=== PATIENT | male | born 1950 | race Caucasian/White ===

== ENCOUNTER 2021-05-05 16:37 | Emergency (ER) | payer MEDICARE, OTHER ==
--- NOTE | 2021-05-05 16:41 | EDM.PDOC ---
ED HPI GENERAL MEDICAL PROBLEM - General Chief Complaint: Lower Extremity Injury/Pain Stated Complaint: FELL OFF LADDER AND INJURED HIP Time Seen by Provider: 05/05/21 16:37 Source of Information: Reports: Patient, EMS, EMS Notes Reviewed, RN Notes Reviewed History Limitations: Reports: No Limitations - History of Present Illness INITIAL COMMENTS - FREE TEXT/NARRATIVE: Patient presents to the emergency department via EMS for evaluation of left hip pain. He states he was approximately 5 feet off the ground on a ladder when he stepped backwards and fell from the ladder. He landed directly onto his left hip. He is complaining of pain there but denies other injuries or concerns. He states he felt a little bit dizzy before falling; however, states he has been worked up for dizziness in the recent past and providers have been unable to identify a cause. He is taking medication for that right now. He did not hit his head, had no loss of consciousness, and is able to accurately recount the details of the injury. He denies other concerns or complaints. Onset: Today, Sudden Left Hip Pain Score (Numeric/FACES): 5 - Related Data Allergies Allergy/AdvReac Type Severity Reaction Status Date / Time No Known Allergies Allergy Verified 05/05/21 16:58 Review of Systems - Review of Systems Review Of Systems: Comprehensive ROS is negative, except as noted in HPI. ED EXAM, GENERAL - Physical Exam Exam: See Below Exam Limited By: No Limitations General Appearance: Alert, No Apparent Distress, Mild Distress Eye Exam: Bilateral Eye: Normal Inspection, PERRL Ears: Normal External Exam Nose: Normal Inspection Throat/Mouth: Normal Inspection Head: Atraumatic, Normocephalic Respiratory/Chest: No Respiratory Distress, Lungs Clear, Normal Breath Sounds, No Accessory Muscle Use Cardiovascular: Normal Peripheral Pulses, Regular Rate, Rhythm Extremities: Normal Inspection, Other (Left hip quite swollen, no deformity or discoloration noted.) Neurological: Alert, Oriented Psychiatric: Normal Affect Skin Exam: Warm, Dry, Intact Course - Vital Signs Last Recorded V/S: Last Vital Signs Temp 35.6 C L 05/05/21 17:30 Pulse 57 L 05/05/21 17:53 Resp 16 05/05/21 17:53 BP 94/53 L 05/05/21 17:53 Pulse Ox 97 05/05/21 17:53 - Orders/Labs/Meds Orders: Active Orders 24 hr Category Date Time Status Pelvis wo Cont [CT] Stat Exams 05/05/21 16:48 Taken BASIC METABOLIC PANEL,BMP [CHEM] Stat Lab 05/05/21 17:39 Ordered CBC WITH AUTO DIFF [HEME] Stat Lab 05/05/21 17:34 Ordered CORONAVIRUS COVID-19 ESMER [MOLEC] Stat Lab 05/05/21 17:50 Received Sodium Chloride 0.9% [Normal Saline] 1,000 ml Med 05/05/21 17:45 Ordered IV ASDIRECTED Medication Orders Sodium Chloride (Normal Saline) 1,000 mls @ 999 mls/hr IV ASDIRECTED MARC Meds: Medications Generic Name Dose Route Start Last Admin Trade Name Freq PRN Reason Stop Dose Admin Sodium Chloride 1,000 mls @ 999 mls/hr 05/05/21 17:45 Normal Saline IV ASDIRECTED MARC Discontinued Medications Generic Name Dose Route Start Last Admin Trade Name Freq PRN Reason Stop Dose Admin Lorazepam 2 mg 05/05/21 16:49 05/05/21 16:54 Lorazepam 2 Mg/Ml Sdv IVPUSH 05/05/21 16:50 2 mg ONETIME ONE Administration Lorazepam Confirm 05/05/21 17:00 05/05/21 16:58 Lorazepam 2 Mg/Ml Sdv Administered 05/05/21 17:01 Not Given Dose 2 mg .ROUTE .STK-MED ONE Morphine Sulfate 4 mg 05/05/21 16:43 05/05/21 16:56 Morphine 10 Mg/Ml Sdv IV 05/05/21 16:44 4 mg ONETIME ONE Administration Morphine Sulfate Confirm 05/05/21 17:00 05/05/21 16:59 Morphine 4 Mg/Ml Vial Administered 05/05/21 17:01 Not Given Dose 4 mg .ROUTE .STK-MED ONE - Re-Assessments/Exams Free Text/Narrative Re-Assessment/Exam: 05/05/21 17:58 This patient presents to the emergency department following a fall from a ladder. History clinical findings are most consistent with a proximal femur fracture. He has excellent CMS and has been comfortable with morphine and Ativ an. He has no other injuries. I contacted with Dr. Lu from their emergency department who did agree to accept him in admission to their facility. He will be transported to the emergency department at [facility] and will fly with guardian and air. The patient's trauma exam include is negative for other serious sequelae including spine, head, chest, abdomen, other extremity, and pelvic injuries. The patient was stable at the time of transfer. Departure - Departure Time of Disposition: 18:45 Disposition: DC/Tfer to [facility] Condition: Good Clinical Impression: Femur fracture, left - Discharge Information *PRESCRIPTION DRUG MONITORING PROGRAM REVIEWED*: No *COPY OF PRESCRIPTION DRUG MONITORING REPORT IN PATIENT CLIF: No Forms: ED Department Discharge, Interfacility Transfer ANDREA Sepsis Event Note (ED) - Focused Exam Vital Signs: Vital Signs Temp Pulse Resp BP Pulse Ox 05/05/21 17:53 57 L 16 94/53 L 97 05/05/21 17:44 58 L 20 100/43 L 98 05/05/21 17:37 62 16 88/66 L 97 05/05/21 17:30 35.6 C L 64 20 118/65 94 L 05/05/21 17:08 64 18 126/73 90 L 05/05/21 16:37 35.6 C L 64 20 118/65 94 L - My Orders Last 24 Hours: My Active Orders 05/05/21 16:48 Pelvis wo Cont [CT] Stat 05/05/21 17:34 CBC WITH AUTO DIFF [HEME] Stat 05/05/21 17:39 BASIC METABOLIC PANEL,BMP [CHEM] Stat 05/05/21 17:45 Sodium Chloride 0.9% [Normal Saline] 1,000 ml IV ASDIRECTED 05/05/21 17:50 CORONAVIRUS COVID-19 ESMER [MOLEC] Stat - Assessment/Plan Last 24 Hours: My Active Orders 05/05/21 16:48 Pelvis wo Cont [CT] Stat 05/05/21 17:34 CBC WITH AUTO DIFF [HEME] Stat 05/05/21 17:39 BASIC METABOLIC PANEL,BMP [CHEM] Stat 05/05/21 17:45 Sodium Chloride 0.9% [Normal Saline] 1,000 ml IV ASDIRECTED 05/05/21 17:50 CORONAVIRUS COVID-19 ESMER [MOLEC] Stat
[2021-05-05] MEDS ORDERED: Morphine 10 MG/ML SDV IV ONE (16:43)
[2021-05-05] MEDS ORDERED: LORazepam 2 MG/ML SDV IVPUSH ONE (16:49)
[2021-05-05] MEDS ORDERED: Morphine 4 MG/ML VIAL ONE ×2 (17:00→18:37)
[2021-05-05] MEDS ORDERED: LORazepam 2 MG/ML SDV ONE (17:00)
[2021-05-05] MEDS ORDERED: Sodium Chloride 0.9% 1,000 ML IV SCH (17:45)
[2021-05-05] MEDS ORDERED: Morphine 4 MG/ML VIAL IVPUSH ONE (18:27)
--- NOTE | 2021-05-06 11:47 | CT ---
CLINICAL DATA: Trauma. PELVIC CT, 2020: Multislice axial acquisition through the pelvis and proximal femurs was performed. There is an impacted, comminuted, intertrochanteric fracture on the left with coxa vara deformity. No other acute abnormalities. IMPRESSION: Comminuted intertrochanteric left hip fracture. Job: [id number] [facility]
== END 2021-05-05 19:50 ==
LOC: LB.ED 16:37
DX: S72.142A Displaced intertrochanteric fracture of left femur, initial encounter for closed fracture (principal); Z20.822 Contact with and (suspected) exposure to COVID-19; W11.XXXA Fall on and from ladder, initial encounter
CPT/HCPCS: 36415; 72192; 80048; 85025; 96374; 96375; 96376; 99285; A0425; A0429; J2060; J2270; J7030; U0002

== ENCOUNTER 2022-12-22 23:25 | Emergency (ER) | payer MEDICARE, BC ==
[2022-12-23] MEDS ORDERED: Gabapentin 300 MG Cap PO ONE (00:08)
[2022-12-23] MEDS ORDERED: Ketorolac 30 MG/ML SDV IVPUSH ONE (00:08)
[2022-12-23] MEDS ORDERED: fentaNYL 100 MCG/2 ML SDV ONE (00:44)
[2022-12-23] MEDS ORDERED: fentaNYL 100 MCG/2 ML SDV IVPUSH STA (00:45)
[2022-12-23] MEDS ORDERED: HYDROmorphone 2 MG/ML Syringe ONE (01:42)
[2022-12-23] MEDS ORDERED: HYDROmorphone 2 MG/ML Syringe IVPUSH ONE (01:45)
[2022-12-23] MEDS ORDERED: fentaNYL 50 MCG/HR Transdermal Patch ONE (02:06)
[2022-12-23] MEDS ORDERED: Ondansetron 4 MG Tab.DIS PO PRN (02:10)
[2022-12-23] MEDS ORDERED: fentaNYL 50 MCG/HR Transdermal Patch TRDERM SCH (02:15)
[2022-12-23] MEDS: Cyclobenzaprine 10 MG Tab PO SCH ×2 (03:16→10:49)
[2022-12-23] MEDS: Acetaminophen/HYDROcodone 325-5 MG Tab PO PRN ×2 (03:16→10:47)
[2022-12-23] MEDS ORDERED: Non-Formulary Medication 1 Each (Magnesium [Magnesium] 250 MG Tablet) PO SCH (08:00)
[2022-12-23] MEDS ORDERED: Magnesium Oxide 400 MG Tab ONE (10:42)
[2022-12-23] MEDS: Metoprolol Succinate 25 MG Tab.ER PO SCH (10:48)
[2022-12-23] MEDS: Apixaban 5 MG Tab PO SCH ×2 (10:48→20:21)
[2022-12-23] MEDS: Pravastatin 40 MG Tab PO SCH (10:49)
[2022-12-23] MEDS: DULoxetine 60 MG Cap PO SCH (10:49)
[2022-12-23] MEDS: Esomeprazole 40 MG Cap PO SCH ×2 (10:49→20:20)
[2022-12-23] MEDS: BALSALAZIDE 750 MG PO SCH ×2 (11:38→23:40)
[2022-12-23] MEDS: OXCARBAZEPINE 300 MG PO SCH ×2 (11:38→20:20)
[2022-12-23] MEDS: Non-Formulary Medication 1 Each (Pregabalin [Lyrica] 150 MG Cap) PO SCH ×2 (11:39→23:41)
[2022-12-23] MEDS: fentaNYL 100 MCG/2 ML SDV IVPUSH PRN ×2 (14:30→14:56)
[2022-12-23] MEDS: Gabapentin 300 MG Cap PO SCH ×2 (14:44→20:20)
[2022-12-23] MEDS ORDERED: fentaNYL 75 MCG/HR Transdermal Patch TRDERM SCH (15:00)
[2022-12-23] MEDS ORDERED: fentaNYL 75 MCG/HR Transdermal Patch ONE (15:18)
[2022-12-23] MEDS: methylPREDNISolone Sodium Succinate 40 MG/1 ML SDV IVPUSH SCH ×2 (15:26→23:39)
[2022-12-23] MEDS ORDERED: Morphine 4 MG/ML VIAL IVPUSH PRN (16:39)
[2022-12-23] MEDS: Pregabalin 50 MG Cap ONE ×2 (20:19→20:21)
[2022-12-24] MEDS: methylPREDNISolone Sodium Succinate 40 MG/1 ML SDV IVPUSH SCH (07:47)
[2022-12-24] MEDS: DULoxetine 60 MG Cap PO SCH (07:50)
[2022-12-24] MEDS: Gabapentin 300 MG Cap PO SCH ×2 (07:50→13:24)
[2022-12-24] MEDS: Cyclobenzaprine 10 MG Tab PO SCH (07:50)
[2022-12-24] MEDS: Esomeprazole 40 MG Cap PO SCH (07:50)
[2022-12-24] MEDS: Apixaban 5 MG Tab PO SCH (07:50)
[2022-12-24] MEDS: Metoprolol Succinate 25 MG Tab.ER PO SCH (07:51)
[2022-12-24] MEDS: BALSALAZIDE 750 MG PO SCH (07:58)
[2022-12-24] MEDS: OXCARBAZEPINE 300 MG PO SCH (07:59)
[2022-12-24] MEDS ORDERED: Magnesium Oxide 400 MG Tab PO SCH (08:00)
[2022-12-24] MEDS ORDERED: Pregabalin 75 MG Cap ONE (08:07)
[2022-12-24] MEDS: Pravastatin 40 MG Tab PO SCH (08:10)
[2022-12-24] MEDS: Acetaminophen/HYDROcodone 325-5 MG Tab PO PRN (08:15)
[2022-12-24] MEDS ORDERED: Pregabalin 75 MG Cap PO SCH (20:00)
== END 2022-12-24 16:20 | disposition home or self-care (01) ==
LOC: LB.ED 23:25 → LB.MS 12-23 02:07 → UNDOADMOB 12-23 02:10 → LB.MS 12-23 02:10
PROVIDERS: ADMIT Surgery; ATTEND Surgery
DX: M54.16 Radiculopathy, lumbar region (principal); R22.9 Localized swelling, mass and lump, unspecified; I25.2 Old myocardial infarction; Z86.16 Personal history of COVID-19; Z86.73 Personal history of transient ischemic attack (TIA), and cerebral infarction without residual deficits; Z95.1 Presence of aortocoronary bypass graft
CPT/HCPCS: 96374; 96375; 96376; 97165-GO; 99222; 99239; 99284-25; A0425; A0429; A9270-GY; G0378; J1170; J1885; J2270; J2920; J3010

== ENCOUNTER 2023-04-06 12:11 | Observation (INO) | payer MEDICARE, BC ==
[2023-04-06] MEDS ORDERED: Sodium Chloride 0.9% 10 ML Syringe FLUSH PRN (13:58)
[2023-04-06 14:26] LABS: HEMATOCRIT 28.9 % (40.0-54.0); HEMOGLOBIN 9.7 g/dL (13.0-18.0); MEAN CORPUSCULAR HEMOGLOBIN 28.6 pg (27.0-32.0); MEAN CORPUSCULAR HGB CONC 33.6 g/dL (31.0-35.0); MEAN CORPUSCULAR VOLUME 85 fL (76-96); MEAN PLATELET VOLUME 9.3 fL (6.0-10.0); PLATELET COUNT,PLT 111 K/uL (150-400); RED BLOOD CELL COUNT 3.39 M/uL (4.50-6.50); RED CELL DISTRIBUTION WIDTH 13.2 % (11.0-16.0)
[2023-04-06 14:32] LABS: WHITE BLOOD CELL COUNT,WBC 0.4 K/uL (4.0-11.0)
[2023-04-06 14:52] LABS: A/G RATIO 0.9 (0.8-2.0); ALANINE AMINOTRANSFERASE,ALT 17 U/L (12-78); ALKALINE PHOSPHATASE 58 U/L (46-116); ANION GAP 13.4 mmol/L (5.0-15.0); ASPARTATE AMNIOTRANSFERASE,AST 21 U/L (15-37); BILIRUBIN TOTAL 0.3 mg/dL (0.0-1.0); BLOOD UREA NITROGEN,BUN 9 mg/dL (8-26); CALCIUM 8.3 mg/dL (8.5-10.1); CARBON DIOXIDE,CO2 25.6 mmol/L (21.0-32.0); CHLORIDE,CL 100 mmol/L (98-107); CREATININE 0.82 mg/dL (0.70-1.30); ESTIMATED GFR 94 mL/min (>60); GLUCOSE RANDOM 110 mg/dL (74-100); MAGNESIUM 1.4 mg/dL (1.8-2.4); PHOSPHORUS 3.6 mg/dL (2.5-4.9); PROTEIN TOTAL,TP 6.3 g/dL (6.4-8.2); SODIUM,NA 135 mmol/L (136-145); TROPONIN I HIGH SENSITIVITY 16.8 pg/ml (<=60.4)
[2023-04-06 15:03] LABS: PLATELET COUNT ESTIMATE DECREASED
[2023-04-06 15:04] LABS: GIANT PLATELETS OCCASIONAL
[2023-04-06] MEDS ORDERED: ceFAZolin 2 GM in Sodium Chloride 0.9% 50 ML IV ONE (15:05)
[2023-04-06 15:26] LABS: APPEARANCE,URINE CLEAR (CLEAR); BILIRUBIN,URINE NEGATIVE (NEGATIVE); COLOR,URINE YELLOW; GLUCOSE,URINE NEGATIVE (NEGATIVE); KETONES,URINE NEGATIVE (NEGATIVE); LEUKOCYTE ESTERASE,URINE NEGATIVE (NEGATIVE); NITRITE,URINE NEGATIVE (NEGATIVE); OCCULT BLOOD,URINE NEGATIVE (NEGATIVE); PH,URINE 8.5 (5.0-8.0); PROTEIN,URINE NEGATIVE (NEGATIVE); UROBILINOGEN,URINE 0.2 E.U./dL (0.2-1.0)
[2023-04-06] MEDS ORDERED: Piperacillin/Tazobactam 3.375 GM in Sodium Chloride 0.9% 50 ML IV SCH (16:00)
[2023-04-06] MEDS ORDERED: Piperacillin/Tazobactam 3.375 GM in Sodium Chloride 0.9% 100 ML IV SCH (16:30)
[2023-04-06] MEDS ORDERED: Ondansetron 4 MG/2 ML SDV IV PRN (17:08)
[2023-04-06] MEDS ORDERED: Acetaminophen 325 MG Tab PO PRN (17:08)
[2023-04-06] MEDS ORDERED: Lactated Ringers 1,000 ML IV SCH (17:15)
[2023-04-06] MEDS: Piperacillin/Tazobactam 3.375 GM in Sodium Chloride 0.9% 100 ML IV SCH (21:12)
[2023-04-06] MEDS: Morphine 30 MG Tab.ER PO SCH (21:21)
[2023-04-06] MEDS: Prochlorperazine 10 MG Tab PO PRN (21:21)
[2023-04-06] MEDS: oxyCODONE 5 MG Tab PO PRN (21:22)
[2023-04-06] MEDS: OXcarbazepine 150 MG Tab PO SCH (21:24)
[2023-04-07] MEDS: Piperacillin/Tazobactam 3.375 GM in Sodium Chloride 0.9% 100 ML IV SCH ×4 (01:39→21:02)
[2023-04-07] MEDS: oxyCODONE 5 MG Tab PO PRN ×3 (03:38→15:44)
[2023-04-07] MEDS: Morphine 30 MG Tab.ER PO SCH ×2 (07:43→20:44)
[2023-04-07] MEDS: Prochlorperazine 10 MG Tab PO PRN (07:46)
[2023-04-07 08:49] LABS: HEMATOCRIT 26.4 % (40.0-54.0); HEMOGLOBIN 8.9 g/dL (13.0-18.0); MEAN CORPUSCULAR HEMOGLOBIN 28.8 pg (27.0-32.0); MEAN CORPUSCULAR HGB CONC 33.7 g/dL (31.0-35.0); MEAN PLATELET VOLUME 9.7 fL (6.0-10.0); RED BLOOD CELL COUNT 3.09 M/uL (4.50-6.50); RED CELL DISTRIBUTION WIDTH 13.3 % (11.0-16.0)
[2023-04-07 08:52] LABS: WHITE BLOOD CELL COUNT,WBC 0.7 K/uL (4.0-11.0)
[2023-04-07 09:13] LABS: MAGNESIUM 1.5 mg/dL (1.8-2.4)
[2023-04-07] MEDS: OXcarbazepine 150 MG Tab PO SCH ×2 (14:27→20:43)
[2023-04-08] MEDS: Piperacillin/Tazobactam 3.375 GM in Sodium Chloride 0.9% 100 ML IV SCH ×3 (01:28→13:04)
[2023-04-08] MEDS: oxyCODONE 5 MG Tab PO PRN (05:20)
[2023-04-08] MEDS: Morphine 30 MG Tab.ER PO SCH (08:03)
[2023-04-08 08:48] LABS: HEMOGLOBIN 9.4 g/dL (13.0-18.0); MEAN CORPUSCULAR HEMOGLOBIN 28.8 pg (27.0-32.0); MEAN CORPUSCULAR HGB CONC 33.6 g/dL (31.0-35.0); MEAN PLATELET VOLUME 9.6 fL (6.0-10.0); RED BLOOD CELL COUNT 3.26 M/uL (4.50-6.50); RED CELL DISTRIBUTION WIDTH 13.3 % (11.0-16.0)
[2023-04-08 09:00] LABS: WHITE BLOOD CELL COUNT,WBC 0.9 K/uL (4.0-11.0)
[2023-04-08 09:03] LABS: ANION GAP 11.3 mmol/L (5.0-15.0); CALCIUM 8.7 mg/dL (8.5-10.1); CARBON DIOXIDE,CO2 26.7 mmol/L (21.0-32.0); CREATININE 0.67 mg/dL (0.70-1.30)
[2023-04-08] MEDS: OXcarbazepine 150 MG Tab PO SCH (11:24)
== END 2023-04-08 14:22 | disposition home or self-care (01) ==
LOC: LB.ED 12:11 → LB.MS 18:29
PROVIDERS: ADMIT Surgery; ATTEND Surgery
DX: D70.9 Neutropenia, unspecified (principal); J18.9 Pneumonia, unspecified organism; I25.2 Old myocardial infarction; F03.90 Unspecified dementia, unspecified severity, without behavioral disturbance, psychotic disturbance, mood disturbance, and anxiety; K50.90 Crohn's disease, unspecified, without complications; Z79.899 Other long term (current) drug therapy
CPT/HCPCS: 36415; 71045; 80048; 80053; 81003; 83605; 83735; 83880; 84100; 84484; 85025; 85027; 87040; 96365; 96366; 96367; 96376; 99221; 99238; 99285-25; A9270-GY; G0378; J0690; J2543; J3475; J3490; J7120; Q0164

== ENCOUNTER 2023-04-11 07:42 | Emergency (ER) | payer MEDICARE, BC ==
[2023-04-11] MEDS: Albuterol/Ipratropium 3.0-0.5 MG/3 ML Neb Soln NEB ONE (08:10)
[2023-04-11] MEDS: Albuterol 0.083% 2.5 MG/3 ML Neb Soln NEB ONE ×2 (08:34)
[2023-04-11] MEDS: Acetaminophen 325 MG Tab PO ONE (08:59)
[2023-04-11 09:11] LABS: BASOPHILS ABSOLUTE AUTO 0.01 K/uL (0.02-0.10); BASOPHILS PERCENT AUTO 0.7 % (0.0-0.5); HEMATOCRIT 28.6 % (40.0-54.0); HEMOGLOBIN 9.6 g/dL (13.0-18.0); LYMPHOCYTES ABSOLUTE AUTO 0.47 K/uL (1.50-4.00); MEAN CORPUSCULAR HEMOGLOBIN 28.7 pg (27.0-32.0); MEAN CORPUSCULAR HGB CONC 33.6 g/dL (31.0-35.0); MEAN CORPUSCULAR VOLUME 85 fL (76-96); MEAN PLATELET VOLUME 9.7 fL (6.0-10.0); MONOCYTES ABSOLUTE AUTO 0.41 K/uL (0.20-0.80); MONOCYTES PERCENT AUTO 27.9 % (3.0-10.0); NEUTROPHILS ABSOLUTE AUTO 0.58 K/uL (2.00-7.50); NEUTROPHILS PERCENT AUTO 39.4 % (45.0-70.0); PLATELET COUNT,PLT 178 K/uL (150-400); RED BLOOD CELL COUNT 3.35 M/uL (4.50-6.50); RED CELL DISTRIBUTION WIDTH 13.8 % (11.0-16.0); WHITE BLOOD CELL COUNT,WBC 1.5 K/uL (4.0-11.0)
[2023-04-11] MEDS ORDERED: HYDROmorphone 2 MG/ML Syringe IVPUSH PRN (09:21)
[2023-04-11 09:25] LABS: APPEARANCE,URINE CLEAR (CLEAR); BILIRUBIN,URINE NEGATIVE (NEGATIVE); COLOR,URINE YELLOW; GLUCOSE,URINE NEGATIVE (NEGATIVE); KETONES,URINE NEGATIVE (NEGATIVE); LEUKOCYTE ESTERASE,URINE NEGATIVE (NEGATIVE); NITRITE,URINE NEGATIVE (NEGATIVE); OCCULT BLOOD,URINE NEGATIVE (NEGATIVE); PROTEIN,URINE NEGATIVE (NEGATIVE); UROBILINOGEN,URINE 0.2 E.U./dL (0.2-1.0)
[2023-04-11 09:30] LABS: INR 1.1 (1.0-3.5); PTT,PARTIAL THROMBOPLSTIN TIME 25.4 SECONDS (24.4-33.2)
[2023-04-11 09:31] LABS: PROTHROMBIN TIME 11.6 sec (9.0-11.5)
[2023-04-11 09:53] LABS: A/G RATIO 0.8 (0.8-2.0); ALBUMIN 2.9 g/dL (3.4-5.0); ANION GAP 15.1 mmol/L (5.0-15.0); BILIRUBIN TOTAL 0.3 mg/dL (0.0-1.0); BUN/CREATININE RATIO 11.7 (6-25); CALCIUM 8.9 mg/dL (8.5-10.1); CARBON DIOXIDE,CO2 23.7 mmol/L (21.0-32.0); CREATININE 0.77 mg/dL (0.70-1.30); EST CRCL DRUG DOSING (CG) 99.44 mL/min; POTASSIUM,K 3.8 mmol/L (3.5-5.1); PROTEIN TOTAL,TP 6.5 g/dL (6.4-8.2); TROPONIN I HIGH SENSITIVITY 10.7 pg/ml (<=60.4)
[2023-04-11] MEDS: VANCOmycin 1.5 GM/300 ML 1.5 GM in Premix Bag 1 BAG IV ONE (10:22)
[2023-04-11] MEDS: Acetaminophen 500 MG Tab ONE (10:30)
[2023-04-11] MEDS ORDERED: Norepinephrine 4 MG in Dextrose 5% in Water 246 ML IV SCH ×2 (11:45)
[2023-04-11] MEDS: Cefepime 2 GM in Sodium Chloride 0.9% 50 ML IV ONE (12:45)
== END 2023-04-11 13:18 ==
LOC: LB.ED 07:42
DX: A41.9 Sepsis, unspecified organism (principal); I25.2 Old myocardial infarction; Z91.030 Bee allergy status; Z79.899 Other long term (current) drug therapy
CPT/HCPCS: 36415; 71045; 80053; 81003; 83605; 83880; 84484; 85025; 85610; 85730; 87040; 93005; 93010; 94640; 96365; 96367; 99285; 99285-25; A9270-GY; J0692; J3370; J3490; J7620